=== PATIENT | male | born 1940 | race Caucasian/White ===

== ENCOUNTER 2020-08-29 20:02 | Inpatient (IN) | payer MEDICARE, OTHER ==
[~2020-08-29] VITALS: Ht 170.2 cm; Wt 61.2 kg
--- NOTE | 2020-08-29 20:05 | NUR ---
PT BIBRA 881 FROM HOME. C/O BACK PAIN S/P GLF, DENIES LOC. DENIES TAKING ANY BLOOD THINNERS, PLACED IN BED 11 ON MONITOR AND PULSE OX. ER MD AT BEDSIDE FOR EVAL. AWAITING ORDERS.
[2020-08-29 20:33] LABS: BASOPHILS % (AUTO) 0.7 % (0.0-2.0); EOSINOPHILS % (AUTO) 2.7 % (0.0-6.0); HEMATOCRIT 35 % (39-51); LYMPHOCYTES # (AUTO) 1.5 /CMM (0.8-4.8); LYMPHOCYTES % (AUTO) 27.7 % (20.0-44.0); MEAN CORPUSCULAR HGB CONC 34 g/dl (31.0-36.0); MEAN CORPUSCULAR VOLUME 89 fL (80-96); MONOCYTES # (AUTO) 0.5 /CMM (0.1-1.30); MONOCYTES % (AUTO) 8.5 % (2.0-12.0); NEUTROPHILS # (AUTO) 3.2 /CMM (1.8-8.9); NEUTROPHILS % (AUTO) 60.4 % (43.0-81.0); PLATELET COUNT (AUTO) 456 /CMM (150-450); RED BLOOD CELL COUNT(AUTO) 3.96 MIL/uL (4.5-6.0); WHITE BLOOD COUNT (AUTO) 5.4 K/uL (4.3-11.0)
--- NOTE | 2020-08-29 20:35 | NUR ---
BROUGHT TO CT
[2020-08-29 20:47] LABS: ALBUMIN 3.4 g/dL (3.4-5.0); BILIRUBIN,DIRECT 0.1 mg/dL (0.0-0.2); BILIRUBIN,TOTAL 0.3 mg/dL (0.2-1.0); CALCIUM, SERUM 8.7 mg/dL (8.5-10.1); CREATININE 0.9 mg/dL (0.6-1.3); POTASSIUM 4.9 mmol/L (3.5-5.1); TOTAL PROTEIN, SERUM 6.9 g/dL (6.4-8.2)
--- NOTE | 2020-08-29 20:52 | NUR ---
BACK FROM CT
--- NOTE | 2020-08-29 21:06 | NUR ---
UNABLE TO PROVIDE URINE SAMPLE. STATED HE WILL TRY WITHIN TH NEXT 15 MINS.
--- NOTE | 2020-08-29 21:33 | NUR ---
CALLED LAB FOR COVID SWAB
[2020-08-29 21:57] LABS: BILIRUBIN,URINE Negative (NEGATIVE); COLOR,URINE YELLOW (YELLOW); LEUKOCYTE ESTERASE ,URINE Negative (NEGATIVE); NITRITE, URINE Negative (NEGATIVE); PROTEIN,URINE Trace mg/dl (NEGATIVE); UGLUCOSE Negative (NEGATIVE); UROBILINOGEN,URINE 0.2 EU/dL (0.2)
--- NOTE | 2020-08-29 21:59 | NUR ---
COVID SWABBED, SENT TO LAB
--- NOTE | 2020-08-29 22:00 | NUR ---
HUMBERTO (CAREGIVER) UPDATED Re: PATIENTS CONDITION
[2020-08-29 22:02] LABS: BACTERIA,URINE Rare /HPF (None Seen); RBC,URINE 0-2 /HPF (0-2); SPERM,URINE Rare /HPF (None Seen); SQUAMOUS EPITHELIAL CELL,UR 0-2 /HPF (None Seen); WBC,URINE 0-2 /HPF (0-3)
--- NOTE | 2020-08-29 23:01 | NUR ---
ER TALKING TO ALEJANDRO AYERS DNP REGARDING PT ADMISSION.
--- NOTE | 2020-08-29 23:01 | NUR ---
TELE 307-2
--- NOTE | 2020-08-29 23:08 | NUR ---
REPORT GIVEN TO KIMI GUZMÁN FOR ROSEANNA
[2020-08-30] VITALS (7 sets, daily range): BP systolic 103–141; BP diastolic 55–77
[2020-08-30] MEDS ORDERED: Z GUARD REMEDY 2 OZ OINT TP PRN
[2020-08-30] MEDS ORDERED: ONDANSETRON HCL/PF 4 MG/2 ML VIAL IVP PRN
[2020-08-30] MEDS ORDERED: ACETAMINOPHEN 325 MG TABLET PO PRN
--- NOTE | 2020-08-30 | NUR ---
RN NOTES ADMITTED PATIENT FROM ED DUE TO GROUND LEVEL FALL, ALERT/ORIENTED X2, FORGETFUL, ASKING QUESTIONS REPEATEDLY, ROOM AIR, LUNG SOUNDS DIMINISHED, ABDOMEN SOFT AND NON-TENDER, ACTIVE BOWEL SOUNDS, NO COMPLAIN OF PAIN, LEFT ARM ON SLING, DENIES NUMBNESS, WARM TO TOUCH, GOOD CAPILLARY REFILL. SKIN INTACT. EDUCATED ON PLAN OF CARE AND MEDICATION. WILL CONTINUE TO MONITOR.
[2020-08-30] MEDS: IV NS 0.9% 1,000 ML IV PRN ×2 (00:54→14:57)
[2020-08-30 01:16] LABS: BASOPHILS % (AUTO) 0.6 % (0.0-2.0); EOSINOPHILS % (AUTO) 2.9 % (0.0-6.0); HEMATOCRIT 35 % (39-51); HEMOGLOBIN 11.5 g/dL (13.5-17.5); LYMPHOCYTES # (AUTO) 1.8 /CMM (0.8-4.8); LYMPHOCYTES % (AUTO) 29.5 % (20.0-44.0); MEAN CORPUSCULAR HGB CONC 33 g/dl (31.0-36.0); MEAN CORPUSCULAR VOLUME 91 fL (80-96); MONOCYTES # (AUTO) 0.5 /CMM (0.1-1.30); MONOCYTES % (AUTO) 8.3 % (2.0-12.0); NEUTROPHILS # (AUTO) 3.7 /CMM (1.8-8.9); NEUTROPHILS % (AUTO) 58.7 % (43.0-81.0); PLATELET COUNT (AUTO) 428 /CMM (150-450); RED BLOOD CELL COUNT(AUTO) 3.79 MIL/uL (4.5-6.0); WHITE BLOOD COUNT (AUTO) 6.2 K/uL (4.3-11.0)
[2020-08-30] MEDS: ENOXAPARIN SODIUM 40 MG/0.4 ML DISP.SYRIN SQ SCH ×2 (01:18→20:37)
[2020-08-30 01:49] LABS: ALBUMIN 3.2 g/dL (3.4-5.0); BILIRUBIN,TOTAL 0.3 mg/dL (0.2-1.0); CALCIUM, SERUM 8.3 mg/dL (8.5-10.1); CREATININE 0.9 mg/dL (0.6-1.3); MAGNESIUM 1.7 mg/dL (1.8-2.4); PHOSPHORUS 2.7 mg/dL (2.5-4.9); POTASSIUM 4.1 mmol/L (3.5-5.1); TOTAL PROTEIN, SERUM 6.5 g/dL (6.4-8.2)
[2020-08-30 02:13] LABS: THYROID STIMULATING HORMONE 0.742 uIU/mL (0.358-3.74)
--- NOTE | 2020-08-30 06:07 | NUR ---
RN NOTES ALERT/ORIENTED X2, STABLE ON ROOM AIR, DENIES PAIN AT THIS TIME, FORGETFUL, ASKING QUESTIONS REPEATEDLY, S/P FALL, LEFT ARM IN SLING, DENIES NUMBNESS. INCONTINENT OF URINE, BM X1. HEAD CT NEGATIVE FX, CT CERVICAL SPINE, NO FRACTURE, LUMBAR SPINE CT, NO FRACTURE THORACIC CT, NO FRACTURE, LEFT SHOULDER XRAY - WITH SUSPICIOUS FRACTURE OF LEFT CLAVICLE. PT EVAL AND TREATMENT, IVF, FALL PRECAUTION.
[2020-08-30] MEDS ORDERED: ATOR20TA PO (07:56)
[2020-08-30] MEDS ORDERED: FINA5TAB11 PO (07:56)
[2020-08-30] MEDS ORDERED: MIRT30TA7 PO (07:56)
[2020-08-30] MEDS ORDERED: SERT-437 PO (07:56)
[2020-08-30] MEDS ORDERED: RAMI10CA69 PO (07:56)
[2020-08-30] MEDS ORDERED: METF-440 PO (07:56)
[2020-08-30] MEDS ORDERED: TAMS-12 PO (07:56)
[2020-08-30] MEDS: PANTOPRAZOLE 40 MG TABLET.DR PO SCH (08:30)
[2020-08-30] MEDS ORDERED: Magnesium 1GM/D5W 100ML PREMIX 100 ML IV SCH (09:30)
--- NOTE | 2020-08-30 12:00 | NUR ---
RECEIVED ORDER FOR ENSURE VANILLA 3X DAILY WITH EACH MEAL FROM MARYCRUZ NÚÑEZ NP ORDERS CARRIED OUT. WILL CONTINUE WITH PLAN OF CARE
[2020-08-30] MEDS: HYDROCODONE/APAP 5/325MG TABLET PO PRN (14:49)
--- NOTE | 2020-08-30 14:50 | NUR ---
PT C/O ACHING PAIN OF 7/10 ON HIS LEFT SHOULDER, BP 127/70, HR 78, RR 20, T 97.5, O2 SAT 96% ON RA PER PT REQUEST NORCO 5-325MG PO Q4HR PRN ADMINISTERED PER ORDER. WILL CONTINUE TO MONITOR.
[2020-08-30] MEDS: ENSURE ENLIVE 237 ML LIQUID (VANILLA) PO SCH (17:43)
--- NOTE | 2020-08-30 18:06 | NUR ---
FRUIT TRIMMER CLOSING NOTES PT AWAKE IN BED AT THIS TIME. PT REMAINED STABLE THROUGHOUT SHIFT. PT KEPT CLEAN AND DRY. PAIN MANAGEMENT ADMINISTERED. SAFETY PRECAUTIONS IN PLACE AND MAINTAINED AT ALL TIMES. BED IN LOWEST LOCKED POSITION, HOB ELEVATED, SIDE RAILS UP X 2. CALL LIGHT AND TABLE WITHIN REACH. WILL ENDORSE TO PROGRAM ADVOCATE NURSE FOR ROSEANNA
--- NOTE | 2020-08-30 19:46 | NUR ---
SANDBLAST OR SHOTBLAST EQUIPMENT TENDER OPENING NOTES Patient is awake, A&Ox2. Patient forgets limitations/has episodes of confusion. Has a history of falls. Fall precautions in place. Bed locked, bed alarm on, Non-skid socks on, Call gudino in reach. Patient reminded to ask for assistance before getting up.
[2020-08-30] MEDS: ZOLPIDEM TARTRATE 5 MG TABLET PO PRN (20:44)
--- NOTE | 2020-08-30 20:45 | NUR ---
PRN Ambien administered per order. Patient c/o inability to sleep.
--- NOTE | 2020-08-30 21:45 | NUR ---
Patient still not asleep s/p PRN Ambien administration. Nursing interventions: lights dimmed, quiet environment, more blankets per patient request.
[2020-08-31] VITALS: BP 126/82
[2020-08-31 04:00] VITALS: BP 121/70
[2020-08-31 06:10] LABS: BASOPHILS % (AUTO) 0.5 % (0.0-2.0); EOSINOPHILS % (AUTO) 3.9 % (0.0-6.0); HEMATOCRIT 35 % (39-51); HEMOGLOBIN 11.7 g/dL (13.5-17.5); LYMPHOCYTES # (AUTO) 1.8 /CMM (0.8-4.8); LYMPHOCYTES % (AUTO) 31.2 % (20.0-44.0); MEAN CORPUSCULAR HGB CONC 34 g/dl (31.0-36.0); MEAN CORPUSCULAR VOLUME 91 fL (80-96); MONOCYTES # (AUTO) 0.5 /CMM (0.1-1.30); MONOCYTES % (AUTO) 8.7 % (2.0-12.0); NEUTROPHILS # (AUTO) 3.2 /CMM (1.8-8.9); NEUTROPHILS % (AUTO) 55.7 % (43.0-81.0); PLATELET COUNT (AUTO) 433 /CMM (150-450); RED BLOOD CELL COUNT(AUTO) 3.81 MIL/uL (4.5-6.0); WHITE BLOOD COUNT (AUTO) 5.7 K/uL (4.3-11.0)
[2020-08-31] MEDS: IV NS 0.9% 1,000 ML IV PRN ×2 (06:40→21:03)
--- NOTE | 2020-08-31 06:56 | NUR ---
BODY BUMPER NOTES Patient A&Ox2. VSS. Constantly tried to get out of bed but reoriented to asking nursing for help. Bed alarm on, non-skid socks applied. Patient was kept safe. Tolerating IV hydration well. Denies pain to L shoulder/clavicle. 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 No seizure activity overnight.
[2020-08-31 07:11] LABS: CALCIUM, SERUM 8.4 mg/dL (8.5-10.1); CREATININE 0.8 mg/dL (0.6-1.3); MAGNESIUM 2.1 mg/dL (1.8-2.4); POTASSIUM 4.4 mmol/L (3.5-5.1)
--- NOTE | 2020-08-31 07:19 | NUR ---
FILTER PRESS PUMPER OPENING NOTES RECEIVED PATIENT RESTING IN BED A/O X 2. PATIENT IS BREATHING EVENLY AND NONLABORED ON ROOM AIR. PATIENT IS ON TELE MONITOR SHOWING SINUS RHYTHM WITH BUNDLE BRANCH BLOCK. PATIENT HAS IV ACCESS ON LAC # 20 GAUGE RUNNING NS @ 75 ML PER HOUR. PATIENT HAS L ARM SLING IN PLACE. SKIN NOTED CLEAN AND DRY. SAFETY MEASURES ARE IN PLACE, BED ALARM ON, BED LOW LOCKED AND CALL LIGHT WITHIN REACH. WILL CONTINUE TO MONITOR.
[2020-08-31] MEDS: PANTOPRAZOLE 40 MG TABLET.DR PO SCH (07:37)
[2020-08-31] MEDS: ENSURE ENLIVE 237 ML LIQUID (VANILLA) PO SCH ×3 (07:44→17:00)
[2020-08-31 08:00] VITALS: BP 145/75
[2020-08-31] MEDS: HYDROCODONE/APAP 5/325MG TABLET PO PRN (14:22)
--- NOTE | 2020-08-31 14:26 | NUR ---
RN NOTE PATIENT IS COMPLAINING OF PAIN IN THE CLAVICLE REGION, 09/04. PATIENT ASKED FOR PRN PAIN MEDICATION. PRN PAIN MEDICATION GIVEN ORDERED. WILL CONTINUE TO MONITOR
--- NOTE | 2020-08-31 15:45 | NUR ---
RN NOTES PATIENT CONTINUES TO TAKE OFF ARM SLING. PATIENT REORIENTED AND SLING REPLACED. PATIENT REQUESTED TO KEEP SLING OFF WHILE IN BED. RISK AND BENEFITS EXPLAINED. PATIENT CONTINUES TO REFUSE SLING. PATIENT ALSO CONTINUES TO GET UP OUT OF BED WITHOUT HELP. WILL CONTINUE TO ENSURE FALL PRECAUTIONS ARE IN PLACE, BED LOW LOCKED CALL LIGHT WITHIN REACH, BED ALARM ON, NONSKID SOCKS. PATIENT REMINDED TO CALL FOR HELP BEFORE GETTING UP. PATIENT VERBALIZED UNDERSTANDING. WILL CONTINUE TO MONITOR.
[2020-08-31 16:00] VITALS: BP 148/81
[2020-08-31] MEDS: METFORMIN 500 MG TABLET PO SCH (16:08)
--- NOTE | 2020-08-31 18:41 | NUR ---
MS RN CLOSING NOTES PATIENT RESTING IN BED A/O X 2. PATIENT IS BREATHING EVENLY AND NONLABORED STABLE ON ROOM AIR. PATIENT HAS IV ACCESS ON LAC # 20 GAUGE RUNNING NS @ 75 ML PER HOUR. PATIENT HAS L ARM SLING, BUT REFUSED TO KEEP IT ON. SKIN NOTED CLEAN AND DRY. ALL MEDICATION GIVEN ORDERED. PATIENT NEEDS CONSTANT REMINDERS TO NOT GET OUT OF BED WITHOUT HELP, PATIENT IS HIGH FALL RISK. PATIENT WAS REORIENTED THROUGHOUT THE SHIFT ON HOW TO USE CALL LIGHT AND FALL PREVENTION. SAFETY AND FALL MEASURES ARE IN PLACE, SIDE RAILS UP, BED ALARM ON, BED LOW LOCKED AND CALL LIGHT WITHIN REACH. WILL ENDORSE TO ONCOMING SHIFT
--- NOTE | 2020-08-31 19:27 | NUR ---
MS RN NOTES PATIENT RESTING IN BED A/O X 2. PATIENT IS BREATHING EVENLY AND NONLABORED STABLE ON ROOM AIR. PATIENT HAS IV ACCESS ON LAC # 20 GAUGE RUNNING NS @ 75 ML PER HOUR. PATIENT HAS L ARM SLING, BUT REFUSED TO KEEP IT ON AT THIS TIME.. SKIN NOTED CLEAN AND DRY. FALL PREVENTION. SAFETY AND FALL MEASURES ARE IN PLACE, SIDE RAILS UP, BED ALARM ON, BED LOW LOCKED AND CALL LIGHT WITHIN REACH. WILL CONTINUE TO MONITOR.
[2020-08-31 20:00] VITALS: BP 130/77
[2020-08-31] MEDS: MIRTAZAPINE 15 MG TABLET PO SCH (21:06)
[2020-08-31] MEDS: TAMSULOSIN 0.4 MG CAP.SR.24H PO SCH (21:06)
[2020-08-31] MEDS: ATORVASTATIN 10 MG TABLET PO SCH (21:07)
[2020-08-31] MEDS: ENOXAPARIN SODIUM 40 MG/0.4 ML DISP.SYRIN SQ SCH (21:09)
[2020-08-31] MEDS: ZOLPIDEM TARTRATE 5 MG TABLET PO PRN (21:51)
[2020-09-01 05:54] LABS: BASOPHILS % (AUTO) 0.5 % (0.0-2.0); EOSINOPHILS % (AUTO) 1.8 % (0.0-6.0); HEMATOCRIT 35 % (39-51); HEMOGLOBIN 11.7 g/dL (13.5-17.5); LYMPHOCYTES # (AUTO) 1.8 /CMM (0.8-4.8); LYMPHOCYTES % (AUTO) 21.7 % (20.0-44.0); MEAN CORPUSCULAR HGB CONC 33 g/dl (31.0-36.0); MEAN CORPUSCULAR VOLUME 90 fL (80-96); MONOCYTES # (AUTO) 0.7 /CMM (0.1-1.30); MONOCYTES % (AUTO) 8.9 % (2.0-12.0); NEUTROPHILS # (AUTO) 5.5 /CMM (1.8-8.9); NEUTROPHILS % (AUTO) 67.1 % (43.0-81.0); PLATELET COUNT (AUTO) 463 /CMM (150-450); RED BLOOD CELL COUNT(AUTO) 3.88 MIL/uL (4.5-6.0); WHITE BLOOD COUNT (AUTO) 8.2 K/uL (4.3-11.0)
--- NOTE | 2020-09-01 06:37 | NUR ---
MS RN NOTES PATIENT RESTING IN BED A/O X 2. PATIENT IS BREATHING EVENLY AND NONLABORED STABLE ON ROOM AIR. PATIENT HAS IV ACCESS ON LAC # 20 GAUGE RUNNING NS @ 75 ML PER HOUR. PATIENT HAS L ARM SLING, BUT REFUSED TO KEEP IT ON RISK AND BENEFITS EXPLAINED X 3 PT REFUSED X 3. PT KEPT CLEAN AND TRY AT ALL TIMES. FALL PREVENTION. SAFETY AND FALL MEASURES ARE IN PLACE, SIDE RAILS UP, BED ALARM ON, BED LOW LOCKED AND CALL LIGHT WITHIN REACH. WILL ENDORSE CAR ETO DAY SHIFT NURSE.
--- NOTE | 2020-09-01 07:08 | NUR ---
MS RN OPENING NOTES PATIENT RESTING IN BED A/O X 2. PATIENT IS BREATHING EVENLY AND NONLABORED STABLE ON ROOM AIR. PATIENT HAS IV ACCESS ON LAC # 20 GAUGE RUNNING NS @ 75 ML PER HOUR, PATENT AND INTACT. PATIENT HAS L ARM SLING, BUT REFUSED TO KEEP IT ON AT THIS TIME. SKIN NOTED CLEAN AND DRY. FALL PREVENTION. SAFETY AND FALL MEASURES ARE IN PLACE, SIDE RAILS UP, BED ALARM ON, BED LOW LOCKED AND CALL LIGHT WITHIN REACH. WILL CONTINUE TO MONITOR.
[2020-09-01 07:23] LABS: CALCIUM, SERUM 8.5 mg/dL (8.5-10.1); CREATININE 0.9 mg/dL (0.6-1.3); MAGNESIUM 1.9 mg/dL (1.8-2.4); POTASSIUM 4.2 mmol/L (3.5-5.1)
[2020-09-01] MEDS: PANTOPRAZOLE 40 MG TABLET.DR PO SCH (07:50)
[2020-09-01] MEDS: ENSURE ENLIVE 237 ML LIQUID (VANILLA) PO SCH ×3 (07:51→17:06)
[2020-09-01 08:00] VITALS: BP 140/84
[2020-09-01] MEDS: METFORMIN 500 MG TABLET PO SCH ×2 (08:22→16:12)
[2020-09-01] MEDS: FINASTERIDE (5 MG) 5 MG TABLET PO SCH (08:22)
[2020-09-01] MEDS: SERTRALINE HCL 25 MG TABLET PO SCH (08:22)
[2020-09-01] MEDS: RAMIPRIL 5 MG CAPSULE PO SCH (08:23)
--- NOTE | 2020-09-01 11:10 | NUR ---
RN NOTES PATIENT CONTINUES TO TAKE OFF ARM SLING. PATIENT REORIENTED AND SLING REPLACED. PATIENT REQUESTED TO KEEP SLING OFF WHILE IN BED. RISK AND BENEFITS EXPLAINED X 2. PATIENT CONTINUES TO REFUSE SLING, MD AWARE. PATIENT ALSO CONTINUES TO GET UP OUT OF BED WITHOUT HELP. WILL CONTINUE TO ENSURE FALL PRECAUTIONS ARE IN PLACE, BED LOW LOCKED CALL LIGHT WITHIN REACH, BED ALARM ON, NONSKID SOCKS. PATIENT REMINDED TO CALL FOR HELP BEFORE GETTING UP. PATIENT VERBALIZED UNDERSTANDING. WILL CONTINUE TO MONITOR.
[2020-09-01] MEDS: IV NS 0.9% 1,000 ML IV PRN (13:16)
--- NOTE | 2020-09-01 15:55 | NUR ---
Industrial Green Systems Designer note: food and nutrition services assistant consult request received. SS will follow up at a later time.
--- NOTE | 2020-09-01 17:10 | NUR ---
RN NOTE PATIENT SEEN BY DR ROWLEY. ORDERED EEG PROCEDURE. PATIENT NOTIFIED AND AGREEABLE . WILL CONTINUE TO MONITOR
--- NOTE | 2020-09-01 19:30 | NUR ---
MS RN NOTES PATIENT RESTING IN BED, ALERT/ORIENTED X 2, PATIENT ABLE TO MAKE NEEDS KNOWN. PATIENT STABLE ON ROOM AIR, NO S/S OF DISTRESS OR SHORTNESS OF BREATH NOTED. NO COMPLAINTS OF PAIN AT THIS TIME. L AC IV LEAKING SO IT WAS REMOVED AND PLACED A NEW IV ACCESS IN L FOREARM #20G RUNNING NS @ 75 ML/HR. PATIENT HAS L ARM SLING BUT REFUSES TO KEEP IT ON, PER RAMIREZ AVINA, MD IS AWARE. REMINDED PATIENT NOT TO GET UP WITHOUT HELP AND DEMONSTRATED HOW TO USE CALL LIGHT AGAIN, SITTER PRESENT WELL. SAFETY MEASURES IN PLACE, CALL LIGHT WITHIN REACH, SIDE RAILS UP X 3, BED ALARM ON, BED LOCKED IN LOWEST POSITION.
[2020-09-01 20:00] VITALS: BP 116/67
[2020-09-01] MEDS: MIRTAZAPINE 15 MG TABLET PO SCH (21:34)
[2020-09-01] MEDS: TAMSULOSIN 0.4 MG CAP.SR.24H PO SCH (21:34)
[2020-09-01] MEDS: ZOLPIDEM TARTRATE 5 MG TABLET PO PRN (21:34)
[2020-09-01] MEDS: ATORVASTATIN 10 MG TABLET PO SCH (21:34)
[2020-09-01] MEDS: ENOXAPARIN SODIUM 40 MG/0.4 ML DISP.SYRIN SQ SCH (21:38)
[2020-09-02] MEDS: IV NS 0.9% 1,000 ML IV PRN ×2 (02:47→16:17)
[2020-09-02 06:27] LABS: BASOPHILS # (AUTO) 0.1 /CMM (0.0-0.2); BASOPHILS % (AUTO) 1.1 % (0.0-2.0); EOSINOPHILS % (AUTO) 3.6 % (0.0-6.0); HEMATOCRIT 35 % (39-51); HEMOGLOBIN 11.7 g/dL (13.5-17.5); LYMPHOCYTES # (AUTO) 1.7 /CMM (0.8-4.8); MEAN CORPUSCULAR HGB CONC 34 g/dl (31.0-36.0); MEAN CORPUSCULAR VOLUME 92 fL (80-96); MONOCYTES # (AUTO) 0.6 /CMM (0.1-1.30); MONOCYTES % (AUTO) 9.4 % (2.0-12.0); NEUTROPHILS # (AUTO) 3.5 /CMM (1.8-8.9); NEUTROPHILS % (AUTO) 57.9 % (43.0-81.0); PLATELET COUNT (AUTO) 448 /CMM (150-450); RED BLOOD CELL COUNT(AUTO) 3.79 MIL/uL (4.5-6.0); WHITE BLOOD COUNT (AUTO) 6.1 K/uL (4.3-11.0)
--- NOTE | 2020-09-02 07:00 | NUR ---
MS RN CLOSING NOTES PATIENT RESTING IN BED, ALERT/ORIENTED X 2. PATIENT STABLE ON ROOM AIR, NO S/S OF DISTRESS OR SHORTNESS OF BREATH NOTED. NO COMPLAINTS OF PAIN AT THIS TIME. L WRIST #20G RUNNING NS @ 75 ML/HR. PATIENT HAS L ARM SLING BUT REFUSES TO KEEP IT ON, MD IS AWARE. PATIENT NEEDS REMINDERS NOT TO GET OUT OF BED WITHOUT HELP, REORIENTED PATIENT ON HOW TO USE CALL LIGHT. MEDICATIONS GIVEN ORDERED AND PATIENT NEEDS MET THROUGHOUT SHIFT. SAFETY MEASURES IN PLACE, CALL LIGHT WITHIN REACH, SIDE RAILS UP X 3, BED ALARM ON, BED LOCKED IN LOWEST POSITION AND SITTER PRESENT AT BEDSIDE. WILL ENDORSE TO DAY SHIFT NURSE FOR CONTINUITY OF CARE
[2020-09-02 07:33] LABS: CALCIUM, SERUM 8.5 mg/dL (8.5-10.1); CREATININE 0.8 mg/dL (0.6-1.3); MAGNESIUM 1.8 mg/dL (1.8-2.4); POTASSIUM 4.6 mmol/L (3.5-5.1)
--- NOTE | 2020-09-02 07:47 | NUR ---
MS RN OPENING NOTES RECEIVED PATIENT RESTING IN BED, A/O X 2-3. PERIODS OF CONFUSION. ON ROOM AIR - TOLERATING WELL. NO SOB NOTED. NO PAIN NOTED AT THIS TIME. IV ACCESS TO LEFT WRIST #20 - INTACT, RUNNING NS @ 75ML/HR. PER PEDIATRIC DIETICIAN RN, PATIENT IS SUPPOSED TO WEAR LEFT ARM SLING BUT REFUSES TO WEAR IT. SITTER AT BEDSIDE. AMBULATORY WITH ASSIST. SAFETY MEASURES IN PLACE. CALL LIGHT WITHIN REACH. WILL CONTINUE TO MONITOR.
[2020-09-02] MEDS: ENSURE ENLIVE 237 ML LIQUID (VANILLA) PO SCH ×3 (08:18→17:07)
[2020-09-02] MEDS: PANTOPRAZOLE 40 MG TABLET.DR PO SCH (08:18)
[2020-09-02] MEDS: METFORMIN 500 MG TABLET PO SCH ×2 (08:36→16:17)
[2020-09-02] MEDS: FINASTERIDE (5 MG) 5 MG TABLET PO SCH (08:36)
[2020-09-02] MEDS: SERTRALINE HCL 25 MG TABLET PO SCH (08:36)
[2020-09-02] MEDS: ASPIRIN 81 MG TAB.CHEW PO SCH (08:36)
[2020-09-02] MEDS: RAMIPRIL 5 MG CAPSULE PO SCH (08:45)
[2020-09-02] MEDS: HYDROCODONE/APAP 5/325MG TABLET PO PRN (10:50)
--- NOTE | 2020-09-02 14:38 | NUR ---
SW attempted to meet with pt. However, pt. has already departed.
--- NOTE | 2020-09-02 18:08 | NUR ---
FOR AUDIOVISUAL LEAD TECHNICIAN/CASE MANAGEMENT: PATIENT WOULD LIKE A CAREGIVER WHEN HE DISCHARGES HOME. DOES NOT KNOW HOW TO SET UP.
--- NOTE | 2020-09-02 18:31 | NUR ---
MS RN CLOSING NOTE PATIENT CURRENTLY LYING IN BED, AWAKE, A/O X 2-3. PERIODS OF CONFUSION. ON ROOM AIR - TOLERATING WELL. NO SOB NOTED. NO PAIN NOTED AT THIS TIME. IV ACCESS TO LEFT WRIST #20 - INTACT, RUNNING NS @ 75ML/HR. PATIENT IS SUPPOSED TO WEAR LEFT ARM SLING BUT REFUSES TO WEAR IT - SAYS HE DOESN'T THINK IT DOES ANYTHING AND HE DOESN'T NEED IT. SITTER AT BEDSIDE. PATIENT STATED HE WANTS A CAREGIVER WHEN HE DISCHARGED BACK HOME BECAUSE HE FEELS SCARED THAT HE FORGETS THINGS. SAFETY MEASURES IN PLACE. CALL LIGHT WITHIN REACH. WILL ENDORSE TO INCINERATOR PLANT GENERAL SUPERVISOR NURSE FOR ROSEANNA.
--- NOTE | 2020-09-02 20:00 | NUR ---
MS RN OPENING NOTES PATIENT RESTING IN BED, ALERT/ORIENTED X 2 WITH SOME CONFUSION, PATIENT ABLE TO MAKE NEEDS KNOWN. PATIENT STABLE ON ROOM AIR, NO S/S OF DISTRESS OR SHORTNESS OF BREATH NOTED. NO COMPLAINTS OF PAIN AT THIS TIME. L WRIST #20G RUNNING NS @ 75 ML/HR. PATIENT HAS L ARM SLING BUT REFUSES TO KEEP IT ON. REMINDED NOT TO GET OUT OF BED WITHOUT HELP, REORIENTED PATIENT ON HOW TO USE CALL LIGHT. SAFETY MEASURES IN PLACE, CALL LIGHT WITHIN REACH, SIDE RAILS UP X 3, BED ALARM ON, BED LOCKED IN LOWEST POSITION. WILL CONTINUE TO MONITOR. WILL CONTINUE PLAN OF CARE
[2020-09-02 20:59] VITALS: BP 104/56
[2020-09-02] MEDS: ENOXAPARIN SODIUM 40 MG/0.4 ML DISP.SYRIN SQ SCH (21:40)
[2020-09-02] MEDS: ATORVASTATIN 10 MG TABLET PO SCH (21:42)
[2020-09-02] MEDS: TAMSULOSIN 0.4 MG CAP.SR.24H PO SCH (21:42)
[2020-09-02] MEDS: MIRTAZAPINE 15 MG TABLET PO SCH (21:42)
[2020-09-02] MEDS: ZOLPIDEM TARTRATE 5 MG TABLET PO PRN (21:42)
[2020-09-02 23:10] VITALS: BP 140/86
[2020-09-03 04:00] VITALS: BP 133/79
[2020-09-03] MEDS: IV NS 0.9% 1,000 ML IV PRN (05:31)
[2020-09-03 06:11] LABS: BASOPHILS % (AUTO) 0.7 % (0.0-2.0); EOSINOPHILS % (AUTO) 4.4 % (0.0-6.0); HEMATOCRIT 34 % (39-51); HEMOGLOBIN 11.3 g/dL (13.5-17.5); LYMPHOCYTES # (AUTO) 1.7 /CMM (0.8-4.8); LYMPHOCYTES % (AUTO) 26.4 % (20.0-44.0); MEAN CORPUSCULAR HGB CONC 34 g/dl (31.0-36.0); MEAN CORPUSCULAR VOLUME 92 fL (80-96); MONOCYTES # (AUTO) 0.6 /CMM (0.1-1.30); MONOCYTES % (AUTO) 9.2 % (2.0-12.0); NEUTROPHILS # (AUTO) 3.8 /CMM (1.8-8.9); NEUTROPHILS % (AUTO) 59.3 % (43.0-81.0); PLATELET COUNT (AUTO) 413 /CMM (150-450); RED BLOOD CELL COUNT(AUTO) 3.68 MIL/uL (4.5-6.0); WHITE BLOOD COUNT (AUTO) 6.3 K/uL (4.3-11.0)
[2020-09-03 06:49] LABS: CALCIUM, SERUM 8.4 mg/dL (8.5-10.1); CREATININE 0.9 mg/dL (0.6-1.3); POTASSIUM 4.7 mmol/L (3.5-5.1)
--- NOTE | 2020-09-03 07:20 | NUR ---
MS RN OPENING NOTES PATIENT RESTING IN BED, ALERT/ORIENTED X 2 WITH SOME CONFUSION, PATIENT ABLE TO MAKE NEEDS KNOWN. PATIENT IS BREATHING EVENLY AND NONLABORED. PATIENT STABLE ON ROOM AIR, NO S/S OF DISTRESS OR SHORTNESS OF BREATH NOTED. NO COMPLAINTS OF PAIN AT THIS TIME. L WRIST #20G RUNNING NS @ 75 ML/HR. PATIENT HAS L ARM SLING BUT REFUSES TO KEEP IT ON. REMINDED NOT TO GET OUT OF BED WITHOUT HELP, REORIENTED PATIENT ON HOW TO USE CALL LIGHT. SAFETY MEASURES IN PLACE, CALL LIGHT WITHIN REACH, SIDE RAILS UP X 3, BED ALARM ON, BED LOCKED IN LOWEST POSITION. WILL CONTINUE TO MONITOR. WILL CONTINUE PLAN OF CARE
[2020-09-03 08:00] VITALS: BP 138/79
[2020-09-03] MEDS: PANTOPRAZOLE 40 MG TABLET.DR PO SCH (08:08)
[2020-09-03] MEDS: ENSURE ENLIVE 237 ML LIQUID (VANILLA) PO SCH ×2 (08:08→12:09)
[2020-09-03 08:20] VITALS: BP 138/79
[2020-09-03] MEDS: METFORMIN 500 MG TABLET PO SCH (08:20)
[2020-09-03] MEDS: ASPIRIN 81 MG TAB.CHEW PO SCH (08:20)
[2020-09-03] MEDS: SERTRALINE HCL 25 MG TABLET PO SCH (08:20)
[2020-09-03] MEDS: FINASTERIDE (5 MG) 5 MG TABLET PO SCH (08:20)
[2020-09-03] MEDS: RAMIPRIL 5 MG CAPSULE PO SCH (08:20)
[2020-09-03] MEDS ORDERED: LACT-246 PO (08:31)
[2020-09-03] MEDS ORDERED: ASPI-1169 PO (08:31)
--- NOTE | 2020-09-03 11:23 | NUR ---
RN NOTE GAVE REPORT TO RN DIRECTOR GLOBAL DEVELOPMENT GABY @ [facility]. NOTIFIED PATIENT WOULD BE PICKED UP AROUND 1400.
--- NOTE | 2020-09-03 14:37 | NUR ---
EARLY CHILDHOOD SPECIALIST NOTE RECEIVED ORDER FOR DISCHARGE. PATIENT RESTING IN BED, ALERT/ORIENTED X 2 WITH SOME CONFUSION, PATIENT ABLE TO MAKE NEEDS KNOWN. PATIENT IS BREATHING EVENLY AND NONLABORED. PATIENT STABLE ON ROOM AIR, NO S/S OF DISTRESS OR SHORTNESS OF BREATH NOTED. NO COMPLAINTS OF PAIN AT THIS TIME. PATIENT HAS L ARM SLING, BUT REFUSES TO WEAR IT. DISCHARGE INSTRUCTIONS WERE GIVEN TO RN HVAC INSTALLATION TECHNICIAN [place] @ [facility] WRITTEN INSTRUCTIONS GIVEN TO NEW HOME SALES CONSULTANT. IV ACCESS & ID BAND REMOVED. PATIENT LEFT IN STABLE CONDITION VIA AMBULANCE WITH 2 NEW HOME SALES CONSULTANT PRESENT.
== END 2020-09-03 14:45 | DRG 563 ==
LOC: ER 20:05 → TELE 23:30 → UNDOADMIN 23:30 → TELE 23:35 → MED 08-31 08:44
PROVIDERS: ADMIT Nurse Practitioner Acute Care; ATTEND Nurse Practitioner Acute Care
DX: S42.022A Displaced fracture of shaft of left clavicle, initial encounter for closed fracture (principal); D68.59 Other primary thrombophilia; E22.2 Syndrome of inappropriate secretion of antidiuretic hormone; E44.1 Mild protein-calorie malnutrition; W01.0XXA Fall on same level from slipping, tripping and stumbling without subsequent striking against object, initial encounter; Y92.009 Unspecified place in unspecified non-institutional (private) residence as the place of occurrence of the external cause; M47.816 Spondylosis without myelopathy or radiculopathy, lumbar region; N40.0 Benign prostatic hyperplasia without lower urinary tract symptoms; E11.65 Type 2 diabetes mellitus with hyperglycemia; D47.3 Essential (hemorrhagic) thrombocythemia; E86.1 Hypovolemia; F39 Unspecified mood [affective] disorder; T43.225A Adverse effect of selective serotonin reuptake inhibitors, initial encounter; Y92.9 Unspecified place or not applicable; M48.07 Spinal stenosis, lumbosacral region; D63.8 Anemia in other chronic diseases classified elsewhere; E78.5 Hyperlipidemia, unspecified; Z86.73 Personal history of transient ischemic attack (TIA), and cerebral infarction without residual deficits; Z74.09 Other reduced mobility
CPT/HCPCS: 36415; 70450-TC; 72125-TC; 72128-TC; 72131-TC; 73030-TC; 80048-TC; 80053-TC; 80061-TC; 80076-TC; 81001; 82533; 82550-TC; 83735-TC; 84100-TC; 84300-TC; 84443-TC; 85025-TC; 85730-TC; 87081-TC; 95819-TC; 97116-TC; 97530-TC; C9803; G0378; J1650; J3475; J7030